=== PATIENT | female | born 1960 | race Caucasian/White ===

== ENCOUNTER 2017-06-02 09:18 | Day surgery (SDC) | payer BC ==
[2017-06-01 08:19] VITALS: BMI 38.4
--- NOTE | 2017-06-02 01:51 | HP ---
DATE OF ADMISSION: 06/02/2017 HISTORY OF PRESENT ILLNESS: This is a 57-year-old female with history of anemia and melena in 07/2016. She had an EGD done at that time, revealed the gastric ulcer. She was placed on pantoprazole. The patient had a repeat EGD done in 11/2016 and at that time her ulcer was healing, but not completely healed. She was asymptomatic at the present time. She was having no problems at that time. Now, she is having abdominal pain again over the last couple of weeks. She has seen Dr. Davenport in [place], [place]. Her medicine was doubled up. Her pain is over the epigastric area and mild with nausea. The pain is burning in nature. The patient comes for an EGD because of the gastric ulcer bleeding and also recurrence of symptoms. ALLERGIES: None. MEDICAL ILLNESSES: 1. Esophageal reflux. 2. Asthma. 3. Allergic rhinitis. 4. Obesity_. 5. Gastric ulcer bleeding in 07/2016. . PHYSICAL EXAMINATION: GENERAL: The patient appears comfortable. She is obese. VITAL SIGNS: Pulse is 70, blood pressure 140/70. HEENT: Conjunctivae clear. CARDIOVASCULAR: First and second heart sounds normal. LUNGS: Clear to auscultation. ABDOMEN: Soft to palpate. Abdomen is tender over the epigastric area and periumbilical area. There is no rebound or guarding. No organomegaly or masses. ADMITTING DIAGNOSES: Gastric ulcer bleeding in 07/2016. The patient was doing well on medical therapy until a few weeks ago. She then had recurrence of symptom again. Her EGD done 5-6 months ago, did not show any active bleeding __ ___. The patient comes for an EGD and biopsy because of gastric ulcer and recurrence of symptoms. [facility]
[2017-06-02] MEDS ORDERED: Lidocaine 1% PF 5 ML VIAL ONE (10:35)
--- NOTE | 2017-06-02 13:50 | OP ---
DATE OF PROCEDURE: 06/02/2017 OPERATIVE PROCEDURE: Esophagogastroduodenoscopy with biopsy. PREOPERATIVE DIAGNOSIS: A 57-year-old female with abdominal pain, history of bleeding gas tric ulcer in 07/2016. The patient had 3 gastric ulcers in 07/2016. The patient was on medical the rapy over the last 1 year. Recently she has abdominal pain. Her medicine was doubled up to twice a day. The patient underwent followup esophagogastroduodenoscopy . POSTOPERATIVE DIAGNOSES: 1. Normal esophagus and duodenum. 2. Small gastric ulcer of the proximal stomach. Other two ulcers are completely healed. PROCEDURE NOTE: The patient was placed on the left lateral position and was given sedation by [facility]. A [employer] video gastroscope under direct vision was passed down the oropharynx, pa st the GE junction, into the stomach and subsequently into the descending duodenum. The esophageal mucosa appeared normal. The GE junction, no pathology seen. The fundus and cardia, no pathology se en. Over the proximal stomach, the patient was found to have a small ulceration, probably measured about 4-5 mm. The mucosa was somewhat erythematous. Biopsies were obtained. The gastric body and gastric antrum, no pathology seen. The duodenal bulb and descending duodenum, no pathology seen. T he stomach decompressed and the scope removed. DISCHARGE PLANNING: This is a 57-year-old female with bleeding gastric ulcer in 07/2016. The patient underwent EGD because of her recent onset of abdominal pain again. The patient had 3 u lcers before, but 2 ulcers have healed. The small ulcer in the proximal stomach. DISCHARGE RECOMMENDATIONS: 1. Patient advised to continue the medicines as before. 2. Await gastric biopsy on making further recommendations.
== END 2017-06-02 12:00 | disposition home or self-care (01) ==
LOC: SDC 09:18
PROVIDERS: ATTEND Internal Medicine Gastroenterology
PROC: 0DB68ZX Excision of Stomach, Via Natural or Artificial Opening Endoscopic, Diagnostic (ICD-10-PCS; principal; 2017-06-02)
DX: K29.00 Acute gastritis without bleeding (principal); K21.9 Gastro-esophageal reflux disease without esophagitis; J45.909 Unspecified asthma, uncomplicated; J30.9 Allergic rhinitis, unspecified; E66.9 Obesity, unspecified; Z68.38 Body mass index [BMI] 38.0-38.9, adult; Z91.018 Allergy to other foods; Z79.82 Long term (current) use of aspirin; Z79.899 Other long term (current) drug therapy; Z98.890 Other specified postprocedural states; Z87.11 Personal history of peptic ulcer disease
CPT/HCPCS: 88305; 88312; J2001

== ENCOUNTER 2017-11-27 13:15 | Outpatient (CLI) | payer BC | END 2017-11-27 13:16 | disposition home or self-care (01) | LOC: BICMAMMO 13:15 | PROVIDERS: ATTEND Orthopaedic Surgery | DX: Z12.31 Encounter for screening mammogram for malignant neoplasm of breast (principal) | CPT/HCPCS: 77063; 77067 ==

== ENCOUNTER 2018-12-03 07:59 | Outpatient (CLI) | payer BC ==
--- NOTE | 2018-12-03 09:11 | MMO ---
Bilateral MAMMO Bilat Screen [facility]. CLINICAL HISTORY: Patient is 58 years old and is seen for screening. The patient has the following family history of breast cancer: cousin gender unknown, second cousins. The patient has no personal history of cancer. VIEWS: The views performed were: bilateral craniocaudal; bilateral craniocaudal with tomosynthesis; bilateral mediolateral oblique; and bilateral mediolateral oblique with tomosynthesis. FILMS COMPARED: The present examination has been compared to prior imaging studies performed at [facility] on 11/19/2006, 12/10/2007, 12/26/2008, 10/07/2011, 10/11/2012, 11/20/2014, 11/22/2015, 11/21/2016 and 11/27/2017, at [facility] on 01/01/2010, and at [facility] on 11/16/2001 and 05/28/2004. MAMMOGRAM FINDINGS: There are scattered fibroglandular densities. There are two stable nodules seen in the left breast. There are no suspicious masses, suspicious calcifications, or new areas of architectural distortion. IMPRESSION: THERE IS NO MAMMOGRAPHIC EVIDENCE OF MALIGNANCY. A ROUTINE FOLLOW-UP MAMMOGRAM IN 1 YEAR IS RECOMMENDED. THE RESULTS OF THIS EXAM WERE SENT TO THE PATIENT. ACR BI-RADS Category 2 - Benign finding MAMMOGRAPHY NOTE: 1. A negative mammogram report should not delay a biopsy if a dominant of clinically suspicious mass is present. 2. Approximately 10% to 15% of breast cancers are not detected by mammography. 3. Adenosis and dense breasts may obscure an underlying neoplasm.
== END 2018-12-03 08:00 | disposition home or self-care (01) ==
LOC: BICMAMMO 07:59
PROVIDERS: ATTEND General Practice
DX: Z12.31 Encounter for screening mammogram for malignant neoplasm of breast (principal); Z80.3 Family history of malignant neoplasm of breast
CPT/HCPCS: 77063; 77067

== ENCOUNTER 2020-01-06 08:05 | Outpatient (CLI) | payer BC ==
--- NOTE | 2020-01-06 08:41 | MMO ---
Bilateral MAMMO Bilat Screen [facility]. CLINICAL HISTORY: Patient is 59 years old and is seen for screening. The patient has the following family history of breast cancer: cousin gender unknown, second cousins. The patient has no personal history of cancer. VIEWS: The views performed were: bilateral craniocaudal with tomosynthesis and bilateral mediolateral oblique with tomosynthesis. FILMS COMPARED: The present examination has been compared to prior imaging studies performed at [facility] on 11/22/2015, 11/21/2016, 11/27/2017 and 12/03/2018. This study has been interpreted with the assistance of computer-aided detection. MAMMOGRAM FINDINGS: There are scattered fibroglandular densities. Finding 1: There are stable benign appearing calcifications seen in both breasts. Finding 2: There are stable benign appearing densities seen in both breasts. There are no suspicious masses, suspicious calcifications, or new areas of architectural distortion. IMPRESSION: THERE IS NO MAMMOGRAPHIC EVIDENCE OF MALIGNANCY. A ROUTINE FOLLOW-UP MAMMOGRAM IN 1 YEAR IS RECOMMENDED. THE RESULTS OF THIS EXAM WERE SENT TO THE PATIENT. ACR BI-RADS Category 2 - Benign finding MAMMOGRAPHY NOTE: 1. A negative mammogram report should not delay a biopsy if a dominant of clinically suspicious mass is present. 2. Approximately 10% to 15% of breast cancers are not detected by mammography. 3. Adenosis and dense breasts may obscure an underlying neoplasm. Reported by: ROHITH FIGUEROA MD Electonically Signed: [id number]
== END 2020-01-06 08:06 | disposition home or self-care (01) ==
LOC: BICMAMMO 08:05
PROVIDERS: ATTEND General Practice
DX: Z12.31 Encounter for screening mammogram for malignant neoplasm of breast (principal); Z80.3 Family history of malignant neoplasm of breast
CPT/HCPCS: 77063; 77067

== ENCOUNTER 2020-07-05 19:00 | Outpatient (CLI) | payer BC | END 2020-07-05 19:01 | disposition home or self-care (01) | LOC: SLEEPLAB 19:00 | PROVIDERS: ATTEND Internal Medicine Critical Care Medicine | DX: G47.33 Obstructive sleep apnea (adult) (pediatric) (principal); R53.83 Other fatigue; E66.9 Obesity, unspecified | CPT/HCPCS: 95811 ==

== ENCOUNTER 2021-01-25 08:49 | Outpatient (CLI) | payer BC | END 2021-01-25 08:50 | disposition home or self-care (01) | LOC: BICMAMMO 08:49 | PROVIDERS: ATTEND General Practice | DX: Z12.31 Encounter for screening mammogram for malignant neoplasm of breast (principal); Z80.3 Family history of malignant neoplasm of breast | CPT/HCPCS: 77063; 77067 ==

== ENCOUNTER 2022-02-05 09:49 | Outpatient (CLI) | payer BC | END 2022-02-05 09:50 | disposition home or self-care (01) | LOC: BICMAMMO 09:49 | PROVIDERS: ATTEND General Practice | DX: Z12.31 Encounter for screening mammogram for malignant neoplasm of breast (principal); Z80.3 Family history of malignant neoplasm of breast; Z98.890 Other specified postprocedural states | CPT/HCPCS: 77063; 77067 ==